=== PATIENT | female | born 1950 | race Hispanic/Latino ===

== ENCOUNTER 2018-10-22 08:17 | Outpatient (CLI) | payer MEDICARE ==
--- NOTE | 2018-10-22 10:35 | Mammography Report ---
BONE DEXA:10/22/18 08:17:00 CLINICAL: Postmenopausal and history of osteoporosis. No comparison. TECHNIQUE: Two site bone DEXA performed on an Hologic scanner. FINDINGS: The average BMD of the lumbar spine L1-L4 is 0.871g/cm squared with a T-score of -1.6 and a Z-score of +0.3. The average BMD of the left hip is 0.937g/cm squared with a T-score of 0 and a Z-score of +1.3. However, the left femoral neck BMD is 0.545g/cm squared with a T score of -2.7 and a Z score of -1.1 IMPRESSION: 1. WHO classification: Osteopenia with increased fracture risk based on lumbar spine measurements. 2. WHO classification: Osteoporosis with high fracture risk based on left femoral neck measurements. RECOMMENDATION: Clinical correlation and routine screening. DEFINITIONS: BMD = Bone Mineral Density T-score = BMD related to mean peak bone mass of young adult (mean expressed in Standard Deviation) Z-score = Age matched BMD expressed in SD World Health Organization (WHO) Diagnostic Criteria Normal T-score > -1 SD Osteopenia T-score between -1 and -2.4 SD Osteoporosis T-score -2.5 SD or below NOTE: BMD is not the only risk factor for fracture. One should also consider factors such as the patient's age, risk of falling, previous osteoporotic fracture, family history of osteoporotic fractures, current smoker, and low body weight. Z-scores are not calculated if >80 years of age.
--- NOTE | 2018-10-22 13:35 | Mammography Report ---
BILATERAL DIGITAL SCREENING MAMMOGRAM with CAD: 10/22/18 08:17:00 CLINICAL: Routine screening. COMPARISON:None available. Her last mammogram was over 10 years ago. FINDINGS: The breasts are mostly fatty with a few residual bilateral scattered fibroglandular densities. Scattered bilateral benign calcifications. A right upper outer irregular focal asymmetry requires additional imaging.No architectural distortion or suspicious calcifications. IMPRESSION: Right asymmetry requiring further workup. BI-RADS CATEGORY: 0 -- Additional Imaging Evaluation Required RECOMMENDATION: Recall for right mediolateral , spot compression CC and MLO views and right breast ultrasound if needed. ACR BI-RADS MAMMOGRAPHIC CODES: 0 = Needs additional imaging evaluation; 1 = Negative; 2 = Benign; 3 = Probably benign; 4 = Suspicious; 5 = Malignant; 6 = Known biopsy-proven malignancy COMMENT: 1. Dense breast tissue, i.e., adenosis, fibrocystic changes, etc., may obscure an underlying neoplasm. 2. Approximately 10% of cancers are not detected with mammography. 3. A negative mammography report should not delay biopsy if a clinically suspicious mass is present. COMMENT: Patient follow-up letters are generated via our [employer] application.
== END 2018-10-22 08:18 | disposition home or self-care (01) ==
LOC: SPVWC 08:17
PROVIDERS: ATTEND Nurse Practitioner Family
DX: Z12.31 Encounter for screening mammogram for malignant neoplasm of breast (principal); M81.0 Age-related osteoporosis without current pathological fracture; N95.9 Unspecified menopausal and perimenopausal disorder; Z82.61 Family history of arthritis
CPT/HCPCS: 77067; 77080

== ENCOUNTER 2018-12-08 08:03 | Outpatient (CLI) | payer MEDICARE ==
--- NOTE | 2018-12-08 15:32 | Ultrasound Report ---
RIGHT DIGITAL DIAGNOSTIC MAMMOGRAM and RIGHT BREAST ULTRASOUND: 12/08/18 08:03:00 CLINICAL: Recalled for asymmetry. COMPARISON:10/22/18 screening FINDINGS: ML in spot compression MLO and CC views were obtained. Partial effacement of asymmetry. Ultrasound of the upper outer right breast demonstrated no solid mass or shadowing. An irregular cluster of tiny cysts at 10 o'clock 4 cm from the nipple measures 9 x 4 x 7 mm and correlates with the mammographic asymmetry. A few additional smaller cysts. IMPRESSION: Benign cysts and no suspicious finding. BI-RADS CATEGORY: 2 - - Benign RECOMMENDATION: Routine mammographic screening in one year. ACR BI-RADS MAMMOGRAPHIC CODES: 0 = Needs additional imaging evaluation; 1 = Negative; 2 = Benign; 3 = Probably benign; 4 = Suspicious; 5 = Malignant; 6 = Known biopsy-proven malignancy COMMENT: 1. Dense breast tissue, i.e., adenosis, fibrocystic changes, etc., may obscure an underlying neoplasm. 2. Approximately 10% of cancers are not detected with mammography. 3. A negative mammography report should not delay biopsy if a clinically suspicious mass is present. COMMENT: Patient follow-up letters are generated via our [employer] application.
== END 2018-12-08 08:04 | disposition home or self-care (01) ==
LOC: SPVWC 08:03
PROVIDERS: ATTEND Nurse Practitioner Family
DX: N60.01 Solitary cyst of right breast (principal)

== ENCOUNTER 2019-10-25 07:46 | Outpatient (CLI) | payer MEDICARE ==
--- NOTE | 2019-10-25 15:54 | Mammography Report ---
DIGITAL SCREENING MAMMOGRAM WITH CAD, 10/25/2019 INDICATION: Routine screening mammography. TECHNIQUE: Digital bilateral 2D mammography was obtained in the craniocaudal and mediolateral obliq ue projections. This examination was interpreted with the benefit of Computer-Aided Detection analysi s. COMPARISON: 10/22/2018 FINDINGS: Breast Density: There are scattered areas of fibroglandular density. There is no evidence of dominant mass, suspicious calcifications or architectural distortion in eithe r breast. Bilateral benign calcifications. IMPRESSION: No mammographic evidence of malignancy. Follow up recommendation: Routine yearly BI-RADS Category 2: Benign. A "normal" or negative report should not discourage follow up or biopsy of a clinically significant f inding. A written summary of these findings will be mailed to the patient. The patient will be entered into a mammography reporting system which will generate a reminder letter for the patient's next appointmen t at the appropriate interval. The [employer] recommends yearly mammograms starting at age 40 and continuing as l dom as a woman is in good health. Breast MRI is recommended for women with an approximate 20-25% or greater lifetime risk of breast cancer, including women with a strong family history of breast or ova alexandro cancer or who have been treated for Hodgkin's disease. Signer Name: Jaren Cherry MD Signed: 10/25/2019 3:49 PM Workstation Name: [id number]
== END 2019-10-25 07:47 | disposition home or self-care (01) ==
LOC: SPVWC 07:46
PROVIDERS: ATTEND Nurse Practitioner Family
DX: Z12.31 Encounter for screening mammogram for malignant neoplasm of breast (principal); N64.89 Other specified disorders of breast
CPT/HCPCS: 77067